=== PATIENT | male | born 1990 | race Caucasian/White ===

== ENCOUNTER 2022-01-18 15:56 | Emergency (ER) | payer SELFPAY ==
[~2022-01-18] VITALS: Ht 167.6 cm; Wt 102.1 kg
[2022-01-18 16:01] VITALS: BP_SYST 152
[2022-01-18] MEDS ORDERED: TETRACAINE HCL/PF 0.5% OPHTHALMIC DROPS 4 ML OP ONE (16:15)
[2022-01-18] MEDS ORDERED: FLUORESCEIN SODIUM 1 MG OPHTHALMIC STRIP OP ONE (16:15)
[2022-01-18] MEDS ORDERED: ERYEYE LEFT EYE (17:14)
[2022-01-18 17:30] VITALS: BP_SYST 134
== END 2022-01-18 17:30 | disposition home or self-care (01) ==
LOC: SED 15:56
DX: S05.02XA Injury of conjunctiva and corneal abrasion without foreign body, left eye, initial encounter (principal); I10 Essential (primary) hypertension; J45.909 Unspecified asthma, uncomplicated; Z79.899 Other long term (current) drug therapy; W45.8XXA Other foreign body or object entering through skin, initial encounter; Y93.89 Activity, other specified; Y92.89 Other specified places as the place of occurrence of the external cause; Y99.8 Other external cause status
CPT/HCPCS: 99283

== ENCOUNTER 2024-03-26 18:34 | Emergency (ER) | payer SELFPAY ==
[~2024-03-26] VITALS: Ht 167.6 cm; Wt 102.1 kg
[~2024-03-26 18:34] MED LIST: ERYEYE LEFT EYE
[2024-03-26 20:36] VITALS: BP_SYST 145; PULSE 76; RESP 20; TEMP 97.9; O2SAT 97
[2024-03-26] MEDS ORDERED: TETRACAINE HCL/PF 0.5% OPHTHALMIC DROPS 4 ML OP ONE (22:41)
[2024-03-26] MEDS ORDERED: POLYTRIM EACH EYE (22:47)
[2024-03-26 22:50] VITALS: BP_SYST 145; PULSE 76; RESP 20; TEMP 97.9; O2SAT 97
== END 2024-03-26 22:50 | disposition home or self-care (01) ==
LOC: SED 18:34
DX: T15.02XA Foreign body in cornea, left eye, initial encounter (principal); J45.909 Unspecified asthma, uncomplicated; I10 Essential (primary) hypertension; Z79.899 Other long term (current) drug therapy; Z79.2 Long term (current) use of antibiotics; W44.8XXA Other foreign body entering into or through a natural orifice, initial encounter; Y93.89 Activity, other specified; Y92.89 Other specified places as the place of occurrence of the external cause; Y99.8 Other external cause status
CPT/HCPCS: 99284